=== PATIENT | female | born 2000 | race Two or more races ===

== ENCOUNTER 2025-08-20 10:00 | Inpatient (IN) | payer MEDICAID ==
[~2025-08-20] VITALS: Ht 165.1 cm; Wt 95.3 kg
[2025-08-20] MEDS ORDERED: BUTORPHANOL TARTRATE 2 MG/1 ML VIAL IV PRN ×2 (11:00)
[2025-08-20 11:30] LABS: Hematocrit 42.0 % (36.0-46.0); Hemoglobin 14.5 g/dL (12.2-16.2); Mean Corpuscular Hemoglobin 30.4 pg (28.0-32.0); Mean Corpuscular Volume 87.9 fL (80.0-100.0); Nucleated Red Blood Cells % 0.1 %
[2025-08-20 11:37] LABS: Urine Protein, UAD TRACE (Negative)
[2025-08-20 11:38] LABS: INR 0.89 (0.9-1.15); Partial Thromboplastin Time 28.2 SEC (24.5-34.5); Prothrombin Time 9.5 sec (9.3-11.8)
[2025-08-20 11:42] LABS: Albumin 4.3 g/dL (3.2-4.8); Anion Gap 11 (5-15); BUN/Creatinine Ratio 10.4 (10.0-20.0); Calcium 9.6 mg/dL (8.7-10.4); Carbon Dioxide 21 mmol/L (20-31); Chloride 107 mmol/L (98-107); Glucose 85 mg/dL (74-106); Potassium 3.9 mmol/L (3.5-5.1); Sodium 139 mmol/L (136-145); Total Protein 7.2 g/dL (5.7-8.2)
[2025-08-20 11:43] LABS: Bilirubin, Total 0.5 mg/dL (0.2-1.0); Cannabinoid Screen, Urine Neg (NEGATIVE)
[2025-08-20 11:44] LABS: Amphetamine Screen, Urine Neg (NEGATIVE); Barbiturate Scree,Urine Neg (NEGATIVE); Benzodiazephine Screen, Urine Neg (NEGATIVE); Cocaine Screen, Urine Neg (NEGATIVE); Opiate Scree,Urine Neg (NEGATIVE); Phencyclidine Screen, Urine Neg (NEGATIVE)
[2025-08-20 11:52] LABS: Alanine Aminotransferase 60 U/L (7-40); Alkaline Phosphatase 189 U/L (46-116); Blood Urea Nitrogen 7 mg/dL (9-23)
[2025-08-20] MEDS: WITCH HAZEL-GLYCERIN PAD TOP PRN (12:56)
[2025-08-20] MEDS: LACTATED RINGER'S 1,000 ML IV SCH (12:56)
[2025-08-20] MEDS: DERMOPLAST 60ML BOTTLE TOP PRN (12:56)
[2025-08-20] MEDS: PHISODERM TOP SOLN 240ML BTL TOP PRN (12:56)
--- NOTE | 2025-08-20 21:56 | DVHHP2 ---
OB CC & HPI Date Date of Admission: Aug 20, 2025 Patient Identification: : 1 Para: 0 EDC: Jul 28, 2025 EGA: 39+ weeks Chief Complaints: Reason for admission: induction of labor (Oligohydramnios) Other reason for admission: Oligohydramnios Admission Nurse Assessment Rev: Yes History of Present Complaints Positive movement Past Medical History Cardiac: No pertinent Hx Pulmonary: No pertinent Hx Central Nervous System: No pertinent Hx GI: No pertinent Hx Hemotology/Oncology: No pertinent Hx Hepatobiliary: No pertinent Hx Psychiatric: No pertinent Hx Musculoskeletal: No pertinent Hx Rheumotologic: No pertinent Hx Infectious Disease: No peritnent Hx ENT: No pertinent Hx Renal/: No pertinent Hx Endocrine: No pertinent Hx Dermatology: No pertinent Hx Past Surgical History: No pertinent Hx OB History OB History Care: Good Care Ultrasounds: Normal mid trimester US, Other (Oligohydramnios) Obstetrical Complications: Other (Oligohydramnios) Medical Complications: None Allergies: Coded Allergies: NO KNOWN ALLERGIES (Unverified , 08/20/25) Current Medications Current Medications Medications (Trade) Dose Ordered Sig/Lilian Route PRN Reason Start Time Stop Time Status Last Admin Lactated Ringer's 1,000 ml @ 125 mls/hr Q8H IV 08/20/25 11:00 08/20/25 20:13 Penicillin G Potassium [id number] units/Dextrose 50 ml @ 100 mls/hr Q4H IV 08/20/25 15:00 Bakari Christiansen (Tucks) 1 pad PRN PRN TOP PERINEAL AREA DISCOMFORT 08/20/25 11:00 08/20/25 12:56 Sodium Lauryl Sulfate (Phisoderm) 240 ml PRN PRN TOP PERINEAL AREA DISCOMFORT 08/20/25 11:00 08/20/25 12:56 Benzocaine (Dermoplast) 1 applic PRN PRN TOP PERINEAL AREA DISCOMFORT 08/20/25 11:00 08/20/25 12:56 Butorphanol Tartrate (Stadol Injection) 1 mg Q4HPRN PRN IV MODERATE PAIN (4-6 PAIN SCALE) 08/20/25 11:00 Butorphanol Tartrate (Stadol Injection) 2 mg Q4HPRN PRN IV SEVERE PAIN (7-10 PAIN SCALE) 08/20/25 11:00 Misoprostol (Cytotec) 50 mcg Q4HPRN PRN PO CERVICAL RIPENING 08/20/25 11:00 08/20/25 21:02 Lidocaine HCl (Xylocaine) 40 ml ONCE PRN IJ PERINEAL AREA DISCOMFORT 08/20/25 11:00 Family & Social History Family/Social History Blood Type: A- Rubella: immune RPR/VDRL: Negative GBS Status: Negative HBsAG: Negative Review of Systems Constitutional: No symptom reported Ears, Nose, & Throat: No symptom reported Eyes: No symptom reported Pulmonary/Respiratory: No symptom reported Cardiovascular: No symptom reported Gastrointestinal: No symptom reported Genitourinary: No symptom reported Musculoskeletal: No symptom reported Skin: No symptom reported Psychiatric: No symptom reported Endocrine: No symptom reported Hemotologic/Lymphatic: No symptom reported OB Admission Exam Physical Exam HEENT: TMs Normal, Fontanelles Normal, Nasal Mucosa Normal, Eyes non-injected, Oropharynx Normal, PERRLA, Moist Membranes, EOMI Heart: Rhythm Normal Lungs: Clear Abdomen: Non tender Extremities: Normal Reflexes: Normal Cervical Dilatation: 1cm Effacement: 50% Station: -2 Membranes: Intact Heart Rate: 140's Accelerations: Accelerations Present Decelerations: No Decelerations Short Term Variability: Present Intensity: Mild OB Plan Plan Admitting Diagnosis: induction of labor- low TAMMY Plan: Induction Other Plan: Cytotec SANJEEV ORELLANA DO Aug 20, 2025 21:56
--- NOTE | 2025-08-21 05:20 | DVHPN2 ---
Chief Complaints Patient reports: No new complaints, Feels better Nursing reports: No new complaints, No abdominal pain, No chest pain, No dizziness, No cough Objective Medications Current Medications Medications (Trade) Dose Ordered Sig/Lilian Route PRN Reason Start Time Stop Time Status Last Admin Benzocaine (Dermoplast) 1 applic PRN PRN TOP PERINEAL AREA DISCOMFORT 08/20/25 11:00 08/20/25 12:56 Butorphanol Tartrate (Stadol Injection) 1 mg Q4HPRN PRN IV MODERATE PAIN (4-6 PAIN SCALE) 08/20/25 11:00 Butorphanol Tartrate (Stadol Injection) 2 mg Q4HPRN PRN IV SEVERE PAIN (7-10 PAIN SCALE) 08/20/25 11:00 Lactated Ringer's 1,000 ml @ 125 mls/hr Q8H IV 08/20/25 11:00 08/21/25 04:46 Lidocaine HCl (Xylocaine) 40 ml ONCE PRN IJ PERINEAL AREA DISCOMFORT 08/20/25 11:00 Misoprostol (Cytotec) 50 mcg Q4HPRN PRN PO CERVICAL RIPENING 08/20/25 11:00 08/21/25 01:31 Penicillin G Potassium [id number] units/Dextrose 50 ml @ 100 mls/hr Q4H IV 08/20/25 15:00 Sodium Lauryl Sulfate (Phisoderm) 240 ml PRN PRN TOP PERINEAL AREA DISCOMFORT 08/20/25 11:00 08/20/25 12:56 Witch Елена (Tucks) 1 pad PRN PRN TOP PERINEAL AREA DISCOMFORT 08/20/25 11:00 08/20/25 12:56 General: Normal Neck: Normal Lungs: Normal Cardiovascular: Normal Abdominal: Normal ( Jorge's 7-1/2 lb) Extremities: Normal Skin: Normal Neurological: Normal Others Cervix 2 cm 60% firmly applied vertex heart tones reassuring yamila 2-310 minutes Studies Laboratory Tests 08/20/25 11:00 Test 08/20/25 11:00 Range/Units Serum Glucose 85 74-106 mg/dL Ass/Plan Assessment Induction ablator oligohydramnios Plan 4th Cytotec SANJEEV ORELLANA DO Aug 21, 2025 05:20
--- NOTE | 2025-08-21 09:16 | DVHPN2 ---
[facility] Labor Progress Note Date and Time Seen Date Seen: Aug 21, 2025 Time Seen: 08:20 Subjective Patient reports: No new complaints Objective Vital Signs VSS- See CPN Monitoring Method Monitoring Method: External Heart Rate Heart Rate Baseline: 150 Heart Rate Variability: Moderate Presence of FHR Accelerations: Yes Presence of FHR Decelerations: No Are all 5 Components of the FH: Yes Contractions Contractions Frequency: Occasional Contractions Intensity: Mild Contractions Resting Tone: Relaxed Membranes Membranes: Intact Vaginal Exam Vag Exam Deferred: No (/-2, jacome CRB placed with 60cc sterile saline) Vaginal Exam Presentation: VTX Vaginal Exam Show: Small Medications Medications - Pitocin: No Medications - Pain Medications: PRN Medication - Epidural: No Medication - Other s/p 5 doses of cytotec Lab Results Lab Results Current Medications Medications (Trade) Dose Ordered Sig/Lilian Start Time Stop Time Status Last Admin Dose Admin Lactated Ringer's 1,000 ml @ 125 mls/hr Q8H 08/20/25 11:00 08/21/25 04:46 125 MLS/HR Penicillin G Potassium 50 ml @ 100 mls/hr ONCE ONCE 08/20/25 11:00 08/20/25 11:29 DC Penicillin G Potassium [id number] units/Dextrose 50 ml @ 100 mls/hr Q4H 08/20/25 15:00 Bakari Christiansen (Fahad) 1 pad PRN PRN 08/20/25 11:00 08/20/25 12:56 1 PAD Sodium Lauryl Sulfate (Phisoderm) 240 ml PRN PRN 08/20/25 11:00 08/20/25 12:56 240 ML Benzocaine (Dermoplast) 1 applic PRN PRN 08/20/25 11:00 08/20/25 12:56 1 APPLIC Butorphanol Tartrate (Stadol Injection) 1 mg Q4HPRN PRN 08/20/25 11:00 Butorphanol Tartrate (Stadol Injection) 2 mg Q4HPRN PRN 08/20/25 11:00 Misoprostol (Cytotec) 50 mcg Q4HPRN PRN 08/20/25 11:00 08/21/25 05:30 50 MCG Lidocaine HCl (Xylocaine) 40 ml ONCE PRN 08/20/25 11:00 Oxytocin 500 ml @ 999 mls/hr Q31M ONCE 08/20/25 11:00 08/20/25 11:30 DC Oxytocin 500 ml @ 125 mls/hr Q4H ONCE 08/20/25 11:30 08/20/25 15:29 DC Laboratory Tests Test 08/20/25 11:00 Range/Units White Blood Count 8.1 4.4-10.8 10^3/uL Red Blood Count 4.78 4.0-5.20 10^6/uL Hemoglobin 14.5 12.2-16.2 g/dL Hematocrit 42.0 36.0-46.0 % Mean Corpuscular Volume 87.9 80.0-100.0 fL Mean Corpuscular Hemoglobin 30.4 28.0-32.0 pg Mean Corpuscular Hemoglobin Concent 34.6 32.0-36.0 g/dL Red Cell Distribution Width 13.0 11.8-14.3 % Platelet Count 173 140-450 10^3/uL Mean Platelet Volume 10.5 6.9-10.8 fL Neutrophils (%) (Auto) 65.4 37.0-80.0 % Lymphocytes (%) (Auto) 26.7 10.0-50.0 % Monocytes (%) (Auto) 6.6 0.0-12.0 % Eosinophils (%) (Auto) 1.0 0.0-7.0 % Basophils (%) (Auto) 0.3 0.0-2.0 % Neutrophils # (Auto) 5.3 1.6-8.6 10 ^3/uL Lymphocytes # (Auto) 2.2 0.4-5.4 10 ^3/uL Monocytes # (Auto) 0.5 0-1.3 10 ^3/uL Eosinophils # (Auto) 0.1 0-0.8 10 ^3/uL Basophils # (Auto) 0 0-0.2 10 ^3/uL Nucleated Red Blood Cells 0.1 % Prothrombin Time 9.5 9.3-11.8 sec Prothrombin Time INR 0.89 L 0.9-1.15 Activated Partial Thromboplast Time 28.2 24.5-34.5 SEC Urine Color Yellow Yellow Urine Clarity Turbid H Clear Urine pH 5.5 5.0-9.0 Urine Specific [place] 1.029 1.001-1.035 Urine Protein Trace H Negative Urine Ketones Negative Negative Urine Blood Negative Negative /uL Urine Nitrite Negative Negative Urine Bilirubin Negative Negative Urine Urobilinogen Normal Negative mg/dL Urine Leukocyte Esterase 1+ Negative /uL Urine RBC 4 0 - 4 /hpf Urine Microscopic WBC 22 H 0-5 /HPF Urine Squamous Epithelial Cells Few <5 /hpf Urine Bacteria Many H None Seen /hpf Urine Mucus Few None Seen Urine Glucose Normal Normal mg/dL Sodium Level 139 136-145 mmol/L Potassium Level 3.9 3.5-5.1 mmol/L Chloride Level 107 98-107 mmol/L Carbon Dioxide Level 21 20-31 mmol/L Anion Gap 11 5-15 Blood Urea Nitrogen 7 L 9-23 mg/dL Creatinine 0.67 0.550-1.02 mg/dL Glomerular Filtration Rate Calc 123 >90 mL/min BUN/Creatinine Ratio 10.4 10.0-20.0 Serum Glucose 85 74-106 mg/dL Calcium Level 9.6 8.7-10.4 mg/dL Total Bilirubin 0.5 0.2-1.0 mg/dL Aspartate Amino Transferase (AST) 37 13-40 U/L Alanine Aminotransferase (ALT) 60 H 7-40 U/L Alkaline Phosphatase 189 H 46-116 U/L Total Protein 7.2 5.7-8.2 g/dL Albumin 4.3 3.2-4.8 g/dL Urine Opiates Screen Neg NEGATIVE Urine Fentanyl Screen Neg NEGATIVE Urine Barbiturates Screen Neg NEGATIVE Urine Phencyclidine Screen Neg NEGATIVE Urine Amphetamines Screen Neg NEGATIVE Urine Benzodiazepines Screen Neg NEGATIVE Urine Cocaine Screen Neg NEGATIVE Urine Cannabinoids Screen Neg NEGATIVE Treponema pallidum Antibody Non-reactive Negative Hepatitis C Antibody Negative Negative Assessment Assessment 25y/o IUP@39.1wk Induction of labor Oligohydramnios Category 1 EFM Intact Membrane GBS positive Plan Plan After discussion with patient, patient agrees with POC for jacome CRB placement RN to apply traction to jacome CRB q1hr Discussed potential of starting pitocin with pt depending on UC pattern 4 hours after last dose of cytotec. Pt agrees with POC. Start IV PCN for GBS treatment when in active labor or ROM. monitoring per order Pain mgmt PRN Frequent position changes in and out of bed encouraged Limit SVE unless necessary Intrauterine resuscitation PRN Anticipate CNM will consult Dr Luevano PRN Plan discussed with: Patient, Spouse, Other (family) Visit Coding OBGYN Date of Service: Aug 21, 2025 Billing Provider: LION PLUMMER CNM AIRCRAFT ASSEMBLER Common Visit Codes: [id number] INP/OBS CARE(HIGH) AIRCRAFT ASSEMBLER Procedure Codes: [id number] NON-STRESS TEST LION PLUMMER CNM Aug 21, 2025 09:16
[2025-08-21] MEDS ORDERED: NALOXONE HCL 0.4 MG/ML VIAL IV ONE (12:30)
--- NOTE | 2025-08-21 12:35 | DVHPN2 ---
CNM Labor Progress Note Date and Time Seen Date Seen: Aug 21, 2025 Time Seen: 12:05 Subjective Subjective Comment Pt wants epidural before starting IV pitocin. Objective Vital Signs VSS, see CPN Monitoring Method Monitoring Method: External Heart Rate Heart Rate Baseline: 145 Heart Rate Variability: Moderate Presence of FHR Accelerations: Yes Presence of FHR Decelerations: No Are all 5 Components of the FH: Yes Contractions Contractions Frequency: Other (q4-6 min) Duration of Contraction: 90 Contractions Intensity: Moderate Contractions Resting Tone: Relaxed Membranes Membranes: Intact Vaginal Exam Vag Exam Deferred: Yes (jacome CRB in place) Medications Medications - Pitocin: No Medications - Pain Medications: PRN Medication - Epidural: No Medication - Other s/p 5 doses of PO cytotec Lab Results Lab Results Current Medications Medications (Trade) Dose Ordered Sig/Lilian Start Time Stop Time Status Last Admin Dose Admin Lactated Ringer's 1,000 ml @ 125 mls/hr Q8H 08/20/25 11:00 08/21/25 04:46 125 MLS/HR Penicillin G Potassium 50 ml @ 100 mls/hr ONCE ONCE 08/20/25 11:00 08/20/25 11:29 DC Penicillin G Potassium [id number] units/Dextrose 50 ml @ 100 mls/hr Q4H 08/20/25 15:00 Bakari Christiansen (Fahad) 1 pad PRN PRN 08/20/25 11:00 08/20/25 12:56 1 PAD Sodium Lauryl Sulfate (Phisoderm) 240 ml PRN PRN 08/20/25 11:00 08/20/25 12:56 240 ML Benzocaine (Dermoplast) 1 applic PRN PRN 08/20/25 11:00 08/20/25 12:56 1 APPLIC Butorphanol Tartrate (Stadol Injection) 1 mg Q4HPRN PRN 08/20/25 11:00 Butorphanol Tartrate (Stadol Injection) 2 mg Q4HPRN PRN 08/20/25 11:00 Misoprostol (Cytotec) 50 mcg Q4HPRN PRN 08/20/25 11:00 08/21/25 05:30 50 MCG Lidocaine HCl (Xylocaine) 40 ml ONCE PRN 08/20/25 11:00 Oxytocin 500 ml @ 999 mls/hr Q31M ONCE 08/20/25 11:00 08/20/25 11:30 DC Oxytocin 500 ml @ 125 mls/hr Q4H ONCE 08/20/25 11:30 08/20/25 15:29 DC Naloxone HCl (Narcan) 0.2 mg PRN ONCE 08/21/25 12:30 08/21/25 12:31 Ephedrine Sulfate (ePHEDrine SULFATE) 10 mg PRN ONCE 08/21/25 12:30 08/21/25 12:31 Fentanyl Citrate 100 mcg ONCE ONCE 08/21/25 12:30 08/21/25 12:31 Lactated Ringer's 1,000 ml @ 1,000 mls/hr Q1H ONCE 08/21/25 12:30 08/21/25 13:29 Laboratory Tests Test 08/20/25 11:00 Range/Units White Blood Count 8.1 4.4-10.8 10^3/uL Red Blood Count 4.78 4.0-5.20 10^6/uL Hemoglobin 14.5 12.2-16.2 g/dL Hematocrit 42.0 36.0-46.0 % Mean Corpuscular Volume 87.9 80.0-100.0 fL Mean Corpuscular Hemoglobin 30.4 28.0-32.0 pg Mean Corpuscular Hemoglobin Concent 34.6 32.0-36.0 g/dL Red Cell Distribution Width 13.0 11.8-14.3 % Platelet Count 173 140-450 10^3/uL Mean Platelet Volume 10.5 6.9-10.8 fL Neutrophils (%) (Auto) 65.4 37.0-80.0 % Lymphocytes (%) (Auto) 26.7 10.0-50.0 % Monocytes (%) (Auto) 6.6 0.0-12.0 % Eosinophils (%) (Auto) 1.0 0.0-7.0 % Basophils (%) (Auto) 0.3 0.0-2.0 % Neutrophils # (Auto) 5.3 1.6-8.6 10 ^3/uL Lymphocytes # (Auto) 2.2 0.4-5.4 10 ^3/uL Monocytes # (Auto) 0.5 0-1.3 10 ^3/uL Eosinophils # (Auto) 0.1 0-0.8 10 ^3/uL Basophils # (Auto) 0 0-0.2 10 ^3/uL Nucleated Red Blood Cells 0.1 % Prothrombin Time 9.5 9.3-11.8 sec Prothrombin Time INR 0.89 L 0.9-1.15 Activated Partial Thromboplast Time 28.2 24.5-34.5 SEC Urine Color Yellow Yellow Urine Clarity Turbid H Clear Urine pH 5.5 5.0-9.0 Urine Specific [place] 1.029 1.001-1.035 Urine Protein Trace H Negative Urine Ketones Negative Negative Urine Blood Negative Negative /uL Urine Nitrite Negative Negative Urine Bilirubin Negative Negative Urine Urobilinogen Normal Negative mg/dL Urine Leukocyte Esterase 1+ Negative /uL Urine RBC 4 0 - 4 /hpf Urine Microscopic WBC 22 H 0-5 /HPF Urine Squamous Epithelial Cells Few <5 /hpf Urine Bacteria Many H None Seen /hpf Urine Mucus Few None Seen Urine Glucose Normal Normal mg/dL Sodium Level 139 136-145 mmol/L Potassium Level 3.9 3.5-5.1 mmol/L Chloride Level 107 98-107 mmol/L Carbon Dioxide Level 21 20-31 mmol/L Anion Gap 11 5-15 Blood Urea Nitrogen 7 L 9-23 mg/dL Creatinine 0.67 0.550-1.02 mg/dL Glomerular Filtration Rate Calc 123 >90 mL/min BUN/Creatinine Ratio 10.4 10.0-20.0 Serum Glucose 85 74-106 mg/dL Calcium Level 9.6 8.7-10.4 mg/dL Total Bilirubin 0.5 0.2-1.0 mg/dL Aspartate Amino Transferase (AST) 37 13-40 U/L Alanine Aminotransferase (ALT) 60 H 7-40 U/L Alkaline Phosphatase 189 H 46-116 U/L Total Protein 7.2 5.7-8.2 g/dL Albumin 4.3 3.2-4.8 g/dL Urine Opiates Screen Neg NEGATIVE Urine Fentanyl Screen Neg NEGATIVE Urine Barbiturates Screen Neg NEGATIVE Urine Phencyclidine Screen Neg NEGATIVE Urine Amphetamines Screen Neg NEGATIVE Urine Benzodiazepines Screen Neg NEGATIVE Urine Cocaine Screen Neg NEGATIVE Urine Cannabinoids Screen Neg NEGATIVE Treponema pallidum Antibody Non-reactive Negative Hepatitis C Antibody Negative Negative Assessment Assessment 25y/o IUP@39.1wk Induction of labor Oligohydramnios Category 1 EFM Intact Membrane GBS positive Plan Plan RN to apply traction to jacome CRB q1hr until it falls out or remove 12 hours from time of insertion Start IV pitocin per order Start IV PCN for GBS treatment when in active labor or ROM. monitoring per order Pain mgmt PRN Frequent position changes in bed encouraged Limit SVE unless necessary Intrauterine resuscitation PRN Anticipate CNM will consult Dr Luevano PRN Plan discussed with: Patient, Other (family) Visit Coding OBGYN Date of Service: Aug 21, 2025 Billing Provider: LION PLUMMER CNM COMPUTER NETWORK SUPPORT SPECIALIST Common Visit Codes: [id number] INP/OBS CARE(HIGH) LION PLUMMER CNM Aug 21, 2025 12:35
[2025-08-21] MEDS: LIDOCAINE 2% (LOCAL ANESTH.) PF 5ml SDV ONE (12:47)
[2025-08-21] MEDS: ROPIVACAINE HCL 100 ML ONE ×2 (13:28→21:02)
[2025-08-21] MEDS: fentaNYL CITRATE 100 MCG/2 ML VL IV ONE (13:49)
--- NOTE | 2025-08-21 14:05 | EPIDURAL ---
Anesthesia Procedural Note - Epidural Informed consent obtained?: Yes Medication Administered: Fentanyl 100 mcg Sterile prept drape: Yes Spinal level of insertion: L3-L4 Test dose of lidocaine & Epine: Negative Infusion started: Yes Start time: 13:19 End time: 14:04 Procedure description Procedure description: 25 year old , 29 weeks AOG, in active labor, desires PCEA for labor and delivery. She denies any medical problems, no allergies, and takes vitamins. Chart reviewed, patient interviewed, informed consent, all questions answered, and she wishes to proceed. Ms. Molly Perez was positioned sitting up then prepped and draped. Local anesthetic with lidocaine 1% was infiltrated on the skin. Epidural space identified by loss of resistance technique. Test dose negative x 2. Catheter threaded and secured. Patient states that her pain intensity has improved. Delivered by a single live baby girl with APGARs 8 & 9 at 1 & 5 minutes respectively with 1 nuchal cord. Epidural catheter pulled with tip intact. No redness, swelling, or oozing around epidural area. Patient is back to baseline, able to ambulate on her own and meza with her baby. OSCAR PERSAUD MD Aug 21, 2025 14:05
[2025-08-21] MEDS: LACTATED RINGER'S 1,000 ML IV ONE (14:20)
[2025-08-21] MEDS: LACT. RINGERS/OXYTOCIN 20UNITS 1,000 ML IV SCH (16:04)
--- NOTE | 2025-08-21 16:39 | DVHPN2 ---
CNM Labor Progress Note Date and Time Seen Date Seen: Aug 21, 2025 Time Seen: 16:19 Subjective Subjective Comment Pt is comfortable after epidural, denies pain or pressure. Objective Vital Signs VSS, see CPN Monitoring Method Monitoring Method: External Heart Rate Heart Rate Baseline: 145 Heart Rate Variability: Moderate Presence of FHR Accelerations: Yes Presence of FHR Decelerations: Yes Heart Rate Type of Decel: Late Decelerations (x1) Are all 5 Components of the FH: Yes Contractions Contractions Frequency: Other (q3-6 min) Duration of Contraction: 70 Contractions Intensity: Moderate Contractions Resting Tone: Relaxed Membranes Membranes: Intact Vaginal Exam Vag Exam Deferred: No (jacome CRB still in place) Vaginal Exam Dilation: 3 Vaginal Exam Effacement: 80 Vaginal Exam Station: -2 Vaginal Exam Presentation: VTX Vaginal Exam Show: Small Medications Medications - Pitocin: Yes (1mu) Medication - Epidural: Yes Medication - Other S/P 5 doses of PO cytotec Lab Results Lab Results Vital Signs Date Time Temp Pulse Resp B/P (MAP) Pulse Ox O2 Delivery O2 Flow Rate FiO2 08/21/25 13:49 140/65 Current Medications Medications (Trade) Dose Ordered Sig/Lilian Start Time Stop Time Status Last Admin Dose Admin Lactated Ringer's 1,000 ml @ 125 mls/hr Q8H 08/20/25 11:00 08/21/25 13:50 125 MLS/HR Penicillin G Potassium 50 ml @ 100 mls/hr ONCE ONCE 08/20/25 11:00 08/20/25 11:29 DC Penicillin G Potassium [id number] units/Dextrose 50 ml @ 100 mls/hr Q4H 08/20/25 15:00 Bakari Christiansen (Tucks) 1 pad PRN PRN 08/20/25 11:00 08/20/25 12:56 1 PAD Sodium Lauryl Sulfate (Phisoderm) 240 ml PRN PRN 08/20/25 11:00 08/20/25 12:56 240 ML Benzocaine (Dermoplast) 1 applic PRN PRN 08/20/25 11:00 08/20/25 12:56 1 APPLIC Butorphanol Tartrate (Stadol Injection) 1 mg Q4HPRN PRN 08/20/25 11:00 Butorphanol Tartrate (Stadol Injection) 2 mg Q4HPRN PRN 08/20/25 11:00 Misoprostol (Cytotec) 50 mcg Q4HPRN PRN 08/20/25 11:00 08/21/25 05:30 50 MCG Lidocaine HCl (Xylocaine) 40 ml ONCE PRN 08/20/25 11:00 Oxytocin 500 ml @ 999 mls/hr Q31M ONCE 08/20/25 11:00 08/20/25 11:30 DC Oxytocin 500 ml @ 125 mls/hr Q4H ONCE 08/20/25 11:30 08/20/25 15:29 DC Naloxone HCl (Narcan) 0.2 mg PRN ONCE 08/21/25 12:30 08/21/25 12:31 DC Ephedrine Sulfate (ePHEDrine SULFATE) 10 mg PRN ONCE 08/21/25 12:30 08/21/25 12:31 DC Fentanyl Citrate 100 mcg ONCE ONCE 08/21/25 12:30 08/21/25 12:31 DC 08/21/25 13:49 100 MCG Lactated Ringer's 1,000 ml @ 1,000 mls/hr Q1H ONCE 08/21/25 12:30 08/21/25 13:29 DC 08/21/25 14:20 1,000 MLS/HR Oxytocin 1,000 ml @ 6 ml/hr Q24H 08/21/25 14:00 08/21/25 16:04 3 ML/HR Laboratory Tests Test 08/20/25 11:00 Range/Units White Blood Count 8.1 4.4-10.8 10^3/uL Red Blood Count 4.78 4.0-5.20 10^6/uL Hemoglobin 14.5 12.2-16.2 g/dL Hematocrit 42.0 36.0-46.0 % Mean Corpuscular Volume 87.9 80.0-100.0 fL Mean Corpuscular Hemoglobin 30.4 28.0-32.0 pg Mean Corpuscular Hemoglobin Concent 34.6 32.0-36.0 g/dL Red Cell Distribution Width 13.0 11.8-14.3 % Platelet Count 173 140-450 10^3/uL Mean Platelet Volume 10.5 6.9-10.8 fL Neutrophils (%) (Auto) 65.4 37.0-80.0 % Lymphocytes (%) (Auto) 26.7 10.0-50.0 % Monocytes (%) (Auto) 6.6 0.0-12.0 % Eosinophils (%) (Auto) 1.0 0.0-7.0 % Basophils (%) (Auto) 0.3 0.0-2.0 % Neutrophils # (Auto) 5.3 1.6-8.6 10 ^3/uL Lymphocytes # (Auto) 2.2 0.4-5.4 10 ^3/uL Monocytes # (Auto) 0.5 0-1.3 10 ^3/uL Eosinophils # (Auto) 0.1 0-0.8 10 ^3/uL Basophils # (Auto) 0 0-0.2 10 ^3/uL Nucleated Red Blood Cells 0.1 % Prothrombin Time 9.5 9.3-11.8 sec Prothrombin Time INR 0.89 L 0.9-1.15 Activated Partial Thromboplast Time 28.2 24.5-34.5 SEC Urine Color Yellow Yellow Urine Clarity Turbid H Clear Urine pH 5.5 5.0-9.0 Urine Specific [place] 1.029 1.001-1.035 Urine Protein Trace H Negative Urine Ketones Negative Negative Urine Blood Negative Negative /uL Urine Nitrite Negative Negative Urine Bilirubin Negative Negative Urine Urobilinogen Normal Negative mg/dL Urine Leukocyte Esterase 1+ Negative /uL Urine RBC 4 0 - 4 /hpf Urine Microscopic WBC 22 H 0-5 /HPF Urine Squamous Epithelial Cells Few <5 /hpf Urine Bacteria Many H None Seen /hpf Urine Mucus Few None Seen Urine Glucose Normal Normal mg/dL Sodium Level 139 136-145 mmol/L Potassium Level 3.9 3.5-5.1 mmol/L Chloride Level 107 98-107 mmol/L Carbon Dioxide Level 21 20-31 mmol/L Anion Gap 11 5-15 Blood Urea Nitrogen 7 L 9-23 mg/dL Creatinine 0.67 0.550-1.02 mg/dL Glomerular Filtration Rate Calc 123 >90 mL/min BUN/Creatinine Ratio 10.4 10.0-20.0 Serum Glucose 85 74-106 mg/dL Calcium Level 9.6 8.7-10.4 mg/dL Total Bilirubin 0.5 0.2-1.0 mg/dL Aspartate Amino Transferase (AST) 37 13-40 U/L Alanine Aminotransferase (ALT) 60 H 7-40 U/L Alkaline Phosphatase 189 H 46-116 U/L Total Protein 7.2 5.7-8.2 g/dL Albumin 4.3 3.2-4.8 g/dL Urine Opiates Screen Neg NEGATIVE Urine Fentanyl Screen Neg NEGATIVE Urine Barbiturates Screen Neg NEGATIVE Urine Phencyclidine Screen Neg NEGATIVE Urine Amphetamines Screen Neg NEGATIVE Urine Benzodiazepines Screen Neg NEGATIVE Urine Cocaine Screen Neg NEGATIVE Urine Cannabinoids Screen Neg NEGATIVE Treponema pallidum Antibody Non-reactive Negative Hepatitis C Antibody Negative Negative Assessment Assessment 25y/o IUP@39.1wk Induction of labor Oligohydramnios Category 1 EFM Intact Membrane GBS positive Plan Plan RN to continue applying traction to jacome CRB q1hr until it falls out or remove 12 hours from time of insertion Continue with IV pitocin titration per order Start IV PCN for GBS treatment when in active labor or ROM. monitoring per order Pain mgmt - epidural in place Frequent position changes in bed encouraged Limit SVE unless necessary Intrauterine resuscitation PRN Anticipate Dr. Luevano updated on pt status. Plan discussed with: Patient Visit Coding OBGYN Date of Service: Aug 21, 2025 Billing Provider: LION PLUMMER CNM VEHICLE SERVICE ATTENDANT Common Visit Codes: [id number] INP/OBS CARE(MOD) LION PLUMMER CNM Aug 21, 2025 16:39
[2025-08-21] MEDS: ceFAZolin 2 GM/D5W50ml 50 ML IV ONE (20:12)
[2025-08-21] MEDS: PENICILLIN G POT 5MIL/D5 50ML 50 ML IV ONE ×2 (21:20)
[2025-08-21] MEDS ORDERED: ONDANSETRON HCL 4 MG/2 ML VIAL IV PRN (22:45)
--- NOTE | 2025-08-22 00:33 | DVHPN2 ---
CNM Labor Progress Note Date and Time Seen Date Seen: Aug 22, 2025 Time Seen: 12:00 Subjective Patient reports: No new complaints Subjective Comment Subjective Patient is (0,0,0,0) IUP 39w2d IOL for Borderline TAMMY 5.0 Oligohydramnios Received Misoprostol X5 dose CRB That was D/C @ 2029 Currently on Pitocin induction 8 mu/min GBS status: Positive Ancef 2 gm IVPB Penicillin Q4H Epidural for pain management Current SVE 4.5/80/-1 with Bulging Membranes Objective Vital Signs Vital Signs Date Time Temp Pulse Resp B/P (MAP) Pulse Ox O2 Delivery O2 Flow Rate FiO2 08/21/25 13:49 140/65 Monitoring Method Monitoring Method: External Heart Rate Heart Rate Baseline: 165 Heart Rate Variability: Moderate Presence of FHR Accelerations: Yes Presence of FHR Decelerations: No Changes in Trends of Patterns: No Are all 5 Components of the FH: Yes Contractions Contractions Frequency: Other Duration of Contraction: 2 Contractions Intensity: Moderate Contractions Resting Tone: Relaxed Membranes Membranes: Bulging Vaginal Exam Vag Exam Deferred: No Vaginal Exam Dilation: 4 (4.5) Vaginal Exam Effacement: 80 Vaginal Exam Station: -1 Vaginal Exam Presentation: VTX Vaginal Exam Show: Moderate Medications Medications - Pitocin: Yes Medication - Epidural: Yes Medication - Other Ancef Penicillin Lab Results Lab Results Vital Signs Date Time Temp Pulse Resp B/P (MAP) Pulse Ox O2 Delivery O2 Flow Rate FiO2 08/21/25 13:49 140/65 Current Medications Medications (Trade) Dose Ordered Sig/Lilian Start Time Stop Time Status Last Admin Dose Admin Lactated Ringer's 1,000 ml @ 125 mls/hr Q8H 08/20/25 11:00 08/21/25 20:18 125 MLS/HR Penicillin G Potassium 50 ml @ 100 mls/hr ONCE ONCE 08/20/25 11:00 08/20/25 11:29 DC 08/21/25 21:20 100 MLS/HR Penicillin G Potassium 3763155 units/Dextrose 50 ml @ 100 mls/hr Q4H 08/20/25 15:00 Bakari Christiansen (Fahad) 1 pad PRN PRN 08/20/25 11:00 08/20/25 12:56 1 PAD Sodium Lauryl Sulfate (Phisoderm) 240 ml PRN PRN 08/20/25 11:00 08/20/25 12:56 240 ML Benzocaine (Dermoplast) 1 applic PRN PRN 08/20/25 11:00 08/20/25 12:56 1 APPLIC Butorphanol Tartrate (Stadol Injection) 1 mg Q4HPRN PRN 08/20/25 11:00 Butorphanol Tartrate (Stadol Injection) 2 mg Q4HPRN PRN 08/20/25 11:00 Misoprostol (Cytotec) 50 mcg Q4HPRN PRN 08/20/25 11:00 08/21/25 05:30 50 MCG Lidocaine HCl (Xylocaine) 40 ml ONCE PRN 08/20/25 11:00 Oxytocin 500 ml @ 999 mls/hr Q31M ONCE 08/20/25 11:00 08/20/25 11:30 DC Oxytocin 500 ml @ 125 mls/hr Q4H ONCE 08/20/25 11:30 08/20/25 15:29 DC Naloxone HCl (Narcan) 0.2 mg PRN ONCE 08/21/25 12:30 08/21/25 12:31 DC Ephedrine Sulfate (ePHEDrine SULFATE) 10 mg PRN ONCE 08/21/25 12:30 08/21/25 12:31 DC Fentanyl Citrate 100 mcg ONCE ONCE 08/21/25 12:30 08/21/25 12:31 DC 08/21/25 13:49 100 MCG Lactated Ringer's 1,000 ml @ 1,000 mls/hr Q1H ONCE 08/21/25 12:30 08/21/25 13:29 DC 08/21/25 14:20 1,000 MLS/HR Oxytocin 1,000 ml @ 6 ml/hr Q24H 08/21/25 14:00 08/21/25 16:04 3 ML/HR Cefazolin Sodium/ Dextrose 50 ml @ 50 mls/hr ONCE ONCE 08/21/25 19:45 08/21/25 20:44 DC 08/21/25 20:12 50 MLS/HR Cefazolin Sodium 50 ml @ 100 mls/hr Q8HR 08/22/25 07:00 Ondansetron HCl (Zofran) 4 mg Q4HPRN PRN 08/21/25 22:45 Laboratory Tests Test 08/20/25 11:00 Range/Units White Blood Count 8.1 4.4-10.8 10^3/uL Red Blood Count 4.78 4.0-5.20 10^6/uL Hemoglobin 14.5 12.2-16.2 g/dL Hematocrit 42.0 36.0-46.0 % Mean Corpuscular Volume 87.9 80.0-100.0 fL Mean Corpuscular Hemoglobin 30.4 28.0-32.0 pg Mean Corpuscular Hemoglobin Concent 34.6 32.0-36.0 g/dL Red Cell Distribution Width 13.0 11.8-14.3 % Platelet Count 173 140-450 10^3/uL Mean Platelet Volume 10.5 6.9-10.8 fL Neutrophils (%) (Auto) 65.4 37.0-80.0 % Lymphocytes (%) (Auto) 26.7 10.0-50.0 % Monocytes (%) (Auto) 6.6 0.0-12.0 % Eosinophils (%) (Auto) 1.0 0.0-7.0 % Basophils (%) (Auto) 0.3 0.0-2.0 % Neutrophils # (Auto) 5.3 1.6-8.6 10 ^3/uL Lymphocytes # (Auto) 2.2 0.4-5.4 10 ^3/uL Monocytes # (Auto) 0.5 0-1.3 10 ^3/uL Eosinophils # (Auto) 0.1 0-0.8 10 ^3/uL Basophils # (Auto) 0 0-0.2 10 ^3/uL Nucleated Red Blood Cells 0.1 % Prothrombin Time 9.5 9.3-11.8 sec Prothrombin Time INR 0.89 L 0.9-1.15 Activated Partial Thromboplast Time 28.2 24.5-34.5 SEC Urine Color Yellow Yellow Urine Clarity Turbid H Clear Urine pH 5.5 5.0-9.0 Urine Specific [place] 1.029 1.001-1.035 Urine Protein Trace H Negative Urine Ketones Negative Negative Urine Blood Negative Negative /uL Urine Nitrite Negative Negative Urine Bilirubin Negative Negative Urine Urobilinogen Normal Negative mg/dL Urine Leukocyte Esterase 1+ Negative /uL Urine RBC 4 0 - 4 /hpf Urine Microscopic WBC 22 H 0-5 /HPF Urine Squamous Epithelial Cells Few <5 /hpf Urine Bacteria Many H None Seen /hpf Urine Mucus Few None Seen Urine Glucose Normal Normal mg/dL Sodium Level 139 136-145 mmol/L Potassium Level 3.9 3.5-5.1 mmol/L Chloride Level 107 98-107 mmol/L Carbon Dioxide Level 21 20-31 mmol/L Anion Gap 11 5-15 Blood Urea Nitrogen 7 L 9-23 mg/dL Creatinine 0.67 0.550-1.02 mg/dL Glomerular Filtration Rate Calc 123 >90 mL/min BUN/Creatinine Ratio 10.4 10.0-20.0 Serum Glucose 85 74-106 mg/dL Calcium Level 9.6 8.7-10.4 mg/dL Total Bilirubin 0.5 0.2-1.0 mg/dL Aspartate Amino Transferase (AST) 37 13-40 U/L Alanine Aminotransferase (ALT) 60 H 7-40 U/L Alkaline Phosphatase 189 H 46-116 U/L Total Protein 7.2 5.7-8.2 g/dL Albumin 4.3 3.2-4.8 g/dL Urine Opiates Screen Neg NEGATIVE Urine Fentanyl Screen Neg NEGATIVE Urine Barbiturates Screen Neg NEGATIVE Urine Phencyclidine Screen Neg NEGATIVE Urine Amphetamines Screen Neg NEGATIVE Urine Benzodiazepines Screen Neg NEGATIVE Urine Cocaine Screen Neg NEGATIVE Urine Cannabinoids Screen Neg NEGATIVE Treponema pallidum Antibody Non-reactive Negative Hepatitis C Antibody Negative Negative Assessment Assessment ASSESSMENT: 25y/o (0,0,0,0) 39w2d IOL [place] FHR baseline 165 bpm, mod variability , Accelerations present, no deceleration; Category 1 tracing with occasional Cat 2 Contractions q 2-3 mins x 60 secs PLAN: Continue with Pitocin Induction Currently 8 mu/min Turn patient side to side Cooling Measures Remove havy blankets IV ANBX for GBS + in Epidural for pain management Will Revaluate in the morning for possibility of Amniotomy Anticipate Vaginal Delivery Plan of care discussed with Patient Process, Risks, benefits, of available management options discussed Informed Consent obtained Consent for possible blood transfusion obtained. All questions answered. Plan Plan discussed with: Patient Visit Coding OBGYN Date of Service: Aug 22, 2025 Billing Provider: ANGELA ALFARO CNM SKIFF OPERATOR Common Visit Codes: [id number] INP/OBS CARE (MOD) ANGELA ALFARO CNMEct 2024 00:33
[2025-08-22] MEDS: PENICILLIN G POTASSIUM 2,500,000 UNITS in D5W 5% 50 ML IV SCH (01:37)
--- NOTE | 2025-08-22 02:56 | DVHPN2 ---
CNM Labor Progress Note Date and Time Seen Date Seen: Aug 22, 2025 Time Seen: 02:35 Subjective Patient reports: No new complaints Subjective Comment Subjective Patient is (0,0,0,0) IUP 39w2d IOL for Borderline TAMMY 5.0 Oligohydramnios Received Misoprostol X5 dose CRB That was D/C @ 2029 Currently on Pitocin induction 8 mu/min GBS status: Positive Ancef 2 gm IVPB Penicillin Q4H Epidural for pain management SROM Clear Fluid 08/22/2025 @ 0130 Current SVE /-1 Attempted to placed IUPC for Amnioinfusion Failed attempted, head well applied to CX Unable to place IUPC Last time patient ate 08/21 @ 2300 Order for D5LR @ 125 ML/ 500 ML Objective Vital Signs Vital Signs Date Time Temp Pulse Resp B/P (MAP) Pulse Ox O2 Delivery O2 Flow Rate FiO2 08/21/25 13:49 140/65 Monitoring Method Monitoring Method: External Heart Rate Heart Rate Baseline: 155 Heart Rate Variability: Moderate Presence of FHR Accelerations: Yes Presence of FHR Decelerations: No Changes in Trends of Patterns: No Are all 5 Components of the FH: Yes Contractions Contractions Frequency: Other Duration of Contraction: 60 Contractions Intensity: Moderate Contractions Resting Tone: Relaxed Membranes Membranes: Ruptured Amniotic Fluid Color: Clear Vaginal Exam Vag Exam Deferred: Yes Vaginal Exam Dilation: 6 Vaginal Exam Effacement: 90 Vaginal Exam Station: -1 Vaginal Exam Presentation: VTX Vaginal Exam Show: Moderate Medications Medications - Pitocin: Yes Medication - Epidural: Yes Lab Results Lab Results Vital Signs Date Time Temp Pulse Resp B/P (MAP) Pulse Ox O2 Delivery O2 Flow Rate FiO2 08/21/25 13:49 140/65 Current Medications Medications (Trade) Dose Ordered Sig/Lilian Start Time Stop Time Status Last Admin Dose Admin Lactated Ringer's 1,000 ml @ 125 mls/hr Q8H 08/20/25 11:00 08/21/25 20:18 125 MLS/HR Penicillin G Potassium 50 ml @ 100 mls/hr ONCE ONCE 08/20/25 11:00 08/20/25 11:29 DC 08/21/25 21:20 100 MLS/HR Penicillin G Potassium 5631382 units/Dextrose 50 ml @ 100 mls/hr Q4H 08/20/25 15:00 08/22/25 01:37 100 MLS/HR Witch Елена (Tucks) 1 pad PRN PRN 08/20/25 11:00 08/20/25 12:56 1 PAD Sodium Lauryl Sulfate (Phisoderm) 240 ml PRN PRN 08/20/25 11:00 08/20/25 12:56 240 ML Benzocaine (Dermoplast) 1 applic PRN PRN 08/20/25 11:00 08/20/25 12:56 1 APPLIC Butorphanol Tartrate (Stadol Injection) 1 mg Q4HPRN PRN 08/20/25 11:00 Butorphanol Tartrate (Stadol Injection) 2 mg Q4HPRN PRN 08/20/25 11:00 Misoprostol (Cytotec) 50 mcg Q4HPRN PRN 08/20/25 11:00 08/21/25 05:30 50 MCG Lidocaine HCl (Xylocaine) 40 ml ONCE PRN 08/20/25 11:00 Oxytocin 500 ml @ 999 mls/hr Q31M ONCE 08/20/25 11:00 08/20/25 11:30 DC Oxytocin 500 ml @ 125 mls/hr Q4H ONCE 08/20/25 11:30 08/20/25 15:29 DC Naloxone HCl (Narcan) 0.2 mg PRN ONCE 08/21/25 12:30 08/21/25 12:31 DC Ephedrine Sulfate (ePHEDrine SULFATE) 10 mg PRN ONCE 08/21/25 12:30 08/21/25 12:31 DC Fentanyl Citrate 100 mcg ONCE ONCE 08/21/25 12:30 08/21/25 12:31 DC 08/21/25 13:49 100 MCG Lactated Ringer's 1,000 ml @ 1,000 mls/hr Q1H ONCE 08/21/25 12:30 08/21/25 13:29 DC 08/21/25 14:20 1,000 MLS/HR Oxytocin 1,000 ml @ 6 ml/hr Q24H 08/21/25 14:00 08/21/25 16:04 3 ML/HR Cefazolin Sodium/ Dextrose 50 ml @ 50 mls/hr ONCE ONCE 08/21/25 19:45 08/21/25 20:44 DC 08/21/25 20:12 50 MLS/HR Cefazolin Sodium 50 ml @ 100 mls/hr Q8HR 08/22/25 07:00 Ondansetron HCl (Zofran) 4 mg Q4HPRN PRN 08/21/25 22:45 Laboratory Tests Test 08/20/25 11:00 Range/Units White Blood Count 8.1 4.4-10.8 10^3/uL Red Blood Count 4.78 4.0-5.20 10^6/uL Hemoglobin 14.5 12.2-16.2 g/dL Hematocrit 42.0 36.0-46.0 % Mean Corpuscular Volume 87.9 80.0-100.0 fL Mean Corpuscular Hemoglobin 30.4 28.0-32.0 pg Mean Corpuscular Hemoglobin Concent 34.6 32.0-36.0 g/dL Red Cell Distribution Width 13.0 11.8-14.3 % Platelet Count 173 140-450 10^3/uL Mean Platelet Volume 10.5 6.9-10.8 fL Neutrophils (%) (Auto) 65.4 37.0-80.0 % Lymphocytes (%) (Auto) 26.7 10.0-50.0 % Monocytes (%) (Auto) 6.6 0.0-12.0 % Eosinophils (%) (Auto) 1.0 0.0-7.0 % Basophils (%) (Auto) 0.3 0.0-2.0 % Neutrophils # (Auto) 5.3 1.6-8.6 10 ^3/uL Lymphocytes # (Auto) 2.2 0.4-5.4 10 ^3/uL Monocytes # (Auto) 0.5 0-1.3 10 ^3/uL Eosinophils # (Auto) 0.1 0-0.8 10 ^3/uL Basophils # (Auto) 0 0-0.2 10 ^3/uL Nucleated Red Blood Cells 0.1 % Prothrombin Time 9.5 9.3-11.8 sec Prothrombin Time INR 0.89 L 0.9-1.15 Activated Partial Thromboplast Time 28.2 24.5-34.5 SEC Urine Color Yellow Yellow Urine Clarity Turbid H Clear Urine pH 5.5 5.0-9.0 Urine Specific [place] 1.029 1.001-1.035 Urine Protein Trace H Negative Urine Ketones Negative Negative Urine Blood Negative Negative /uL Urine Nitrite Negative Negative Urine Bilirubin Negative Negative Urine Urobilinogen Normal Negative mg/dL Urine Leukocyte Esterase 1+ Negative /uL Urine RBC 4 0 - 4 /hpf Urine Microscopic WBC 22 H 0-5 /HPF Urine Squamous Epithelial Cells Few <5 /hpf Urine Bacteria Many H None Seen /hpf Urine Mucus Few None Seen Urine Glucose Normal Normal mg/dL Sodium Level 139 136-145 mmol/L Potassium Level 3.9 3.5-5.1 mmol/L Chloride Level 107 98-107 mmol/L Carbon Dioxide Level 21 20-31 mmol/L Anion Gap 11 5-15 Blood Urea Nitrogen 7 L 9-23 mg/dL Creatinine 0.67 0.550-1.02 mg/dL Glomerular Filtration Rate Calc 123 >90 mL/min BUN/Creatinine Ratio 10.4 10.0-20.0 Serum Glucose 85 74-106 mg/dL Calcium Level 9.6 8.7-10.4 mg/dL Total Bilirubin 0.5 0.2-1.0 mg/dL Aspartate Amino Transferase (AST) 37 13-40 U/L Alanine Aminotransferase (ALT) 60 H 7-40 U/L Alkaline Phosphatase 189 H 46-116 U/L Total Protein 7.2 5.7-8.2 g/dL Albumin 4.3 3.2-4.8 g/dL Urine Opiates Screen Neg NEGATIVE Urine Fentanyl Screen Neg NEGATIVE Urine Barbiturates Screen Neg NEGATIVE Urine Phencyclidine Screen Neg NEGATIVE Urine Amphetamines Screen Neg NEGATIVE Urine Benzodiazepines Screen Neg NEGATIVE Urine Cocaine Screen Neg NEGATIVE Urine Cannabinoids Screen Neg NEGATIVE Treponema pallidum Antibody Non-reactive Negative Hepatitis C Antibody Negative Negative Assessment Assessment ASSESSMENT: 08/22/2025 25y/o (0,0,0,0) 39w2d IOL [place] FHR baseline 165 bpm, mod variability , Accelerations present, no deceleration; Category 1 tracing with occasional Cat 2 Contractions q 2-3 mins x 60 secs SROM 08/22 @ [address] IUPC PLAN: Start D5LR 125 ML / H / 500 ML total Continue with Pitocin Induction Currently 8 mu/min Turn patient side to side / Position patient left [place] Minimize Vaginal Exams Cooling Measures IV ANBX for GBS + in Epidural for pain management Anticipate Vaginal Delivery Plan of care discussed with Patient Process, Risks, benefits, of available management options discussed Informed Consent obtained Consent for possible blood transfusion obtained. All questions answered. Plan Plan discussed with: Patient Visit Coding OBGYN Date of Service: Aug 22, 2025 Billing Provider: ANGELA ALFARO CNM CNC SUPERVISOR Common Visit Codes: [id number] INP/OBS CARE (LOW), [id number] INP/OBS CARE (MOD) [facility]:56
[2025-08-22] MEDS: D5W/LACTATED RINGERS 1,000 ML IV ONE (03:12)
[2025-08-22] MEDS: ceFAZolin 1GM/50ML 50 ML IV SCH ×2 (04:13→12:07)
[2025-08-22] MEDS: ROPIVACAINE HCL 100 ML ONE (04:20)
[2025-08-22] MEDS: ACETAMINOPHEN 500 MG TAB or CAP PO ONE ×2 (04:55→05:00)
--- NOTE | 2025-08-22 05:03 | DVHPN2 ---
CNM Labor Progress Note Date and Time Seen Date Seen: Aug 22, 2025 Time Seen: 04:45 Subjective Patient reports: Other Subjective Comment Subjective 08/22/2025 @ 3785 Human Resources Support Specialist Requested to bedside for evaluation of patient feeling pressure. SVE done C/C/+1 Tracing Category two FHR 170 with moderate variability and accels's noted Verbal order for Tylenol 1000 mg p.o. X1 dose now Begin to push with contractions to expedite delivery Patient is (0,0,0,0) IUP 39w2d IOL for Borderline TAMMY 5.0 Oligohydramnios Received Misoprostol X5 dose CRB That was D/C @ 2029 Currently on Pitocin induction 8 mu/min GBS status: Positive Ancef 2 gm IVPB Penicillin Q4H Epidural for pain management SROM Clear Fluid 08/22/2025 @ 0130 Monitoring Method Monitoring Method: External Heart Rate Heart Rate Baseline: 170 Heart Rate Variability: Moderate Presence of FHR Accelerations: No Presence of FHR Decelerations: No Changes in Trends of Patterns: No Are all 5 Components of the FH: No If NO Corrective Measures Comp: Begin to push for expidite Vaginal Delivery Contractions Duration of Contraction: 2 Contractions Intensity: Moderate Contractions Resting Tone: Relaxed Membranes Membranes: Ruptured Amniotic Fluid Color: Clear Vaginal Exam Vag Exam Deferred: No Vaginal Exam Dilation: 10 Vaginal Exam Effacement: 100 Vaginal Exam Station: +1 Vaginal Exam Presentation: VTX Vaginal Exam Show: Moderate Medications Medications - Pitocin: Yes Medication - Epidural: Yes Medication - Other Tylenol 1000 mg p.o. now Lab Results Lab Results Vital Signs Date Time Temp Pulse Resp B/P (MAP) Pulse Ox O2 Delivery O2 Flow Rate FiO2 08/21/25 13:49 140/65 Current Medications Medications (Trade) Dose Ordered Sig/Lilian Start Time Stop Time Status Last Admin Dose Admin Lactated Ringer's 1,000 ml @ 125 mls/hr Q8H 08/20/25 11:00 08/21/25 20:18 125 MLS/HR Penicillin G Potassium 50 ml @ 100 mls/hr ONCE ONCE 08/20/25 11:00 08/20/25 11:29 DC 08/21/25 21:20 100 MLS/HR Penicillin G Potassium 2241440 units/Dextrose 50 ml @ 100 mls/hr Q4H 08/20/25 15:00 08/22/25 01:37 100 MLS/HR Witch Елена (Tucks) 1 pad PRN PRN 08/20/25 11:00 08/20/25 12:56 1 PAD Sodium Lauryl Sulfate (Phisoderm) 240 ml PRN PRN 08/20/25 11:00 08/20/25 12:56 240 ML Benzocaine (Dermoplast) 1 applic PRN PRN 08/20/25 11:00 08/20/25 12:56 1 APPLIC Butorphanol Tartrate (Stadol Injection) 1 mg Q4HPRN PRN 08/20/25 11:00 Butorphanol Tartrate (Stadol Injection) 2 mg Q4HPRN PRN 08/20/25 11:00 Misoprostol (Cytotec) 50 mcg Q4HPRN PRN 08/20/25 11:00 08/21/25 05:30 50 MCG Lidocaine HCl (Xylocaine) 40 ml ONCE PRN 08/20/25 11:00 Oxytocin 500 ml @ 999 mls/hr Q31M ONCE 08/20/25 11:00 08/20/25 11:30 DC Oxytocin 500 ml @ 125 mls/hr Q4H ONCE 08/20/25 11:30 08/20/25 15:29 DC Naloxone HCl (Narcan) 0.2 mg PRN ONCE 08/21/25 12:30 08/21/25 12:31 DC Ephedrine Sulfate (ePHEDrine SULFATE) 10 mg PRN ONCE 08/21/25 12:30 08/21/25 12:31 DC Fentanyl Citrate 100 mcg ONCE ONCE 08/21/25 12:30 08/21/25 12:31 DC 08/21/25 13:49 100 MCG Lactated Ringer's 1,000 ml @ 1,000 mls/hr Q1H ONCE 08/21/25 12:30 08/21/25 13:29 DC 08/21/25 14:20 1,000 MLS/HR Oxytocin 1,000 ml @ 6 ml/hr Q24H 08/21/25 14:00 08/21/25 16:04 3 ML/HR Cefazolin Sodium/ Dextrose 50 ml @ 50 mls/hr ONCE ONCE 08/21/25 19:45 08/21/25 20:44 DC 08/21/25 20:12 50 MLS/HR Cefazolin Sodium 50 ml @ 100 mls/hr Q8HR 08/22/25 07:00 08/22/25 04:13 100 MLS/HR Ondansetron HCl (Zofran) 4 mg Q4HPRN PRN 08/21/25 22:45 Dextrose/Lactated Ringer's 1,000 ml @ 125 mls/hr Q8H ONCE 08/22/25 03:00 08/22/25 10:59 08/22/25 03:12 125 MLS/HR Laboratory Tests Test 08/20/25 11:00 Range/Units White Blood Count 8.1 4.4-10.8 10^3/uL Red Blood Count 4.78 4.0-5.20 10^6/uL Hemoglobin 14.5 12.2-16.2 g/dL Hematocrit 42.0 36.0-46.0 % Mean Corpuscular Volume 87.9 80.0-100.0 fL Mean Corpuscular Hemoglobin 30.4 28.0-32.0 pg Mean Corpuscular Hemoglobin Concent 34.6 32.0-36.0 g/dL Red Cell Distribution Width 13.0 11.8-14.3 % Platelet Count 173 140-450 10^3/uL Mean Platelet Volume 10.5 6.9-10.8 fL Neutrophils (%) (Auto) 65.4 37.0-80.0 % Lymphocytes (%) (Auto) 26.7 10.0-50.0 % Monocytes (%) (Auto) 6.6 0.0-12.0 % Eosinophils (%) (Auto) 1.0 0.0-7.0 % Basophils (%) (Auto) 0.3 0.0-2.0 % Neutrophils # (Auto) 5.3 1.6-8.6 10 ^3/uL Lymphocytes # (Auto) 2.2 0.4-5.4 10 ^3/uL Monocytes # (Auto) 0.5 0-1.3 10 ^3/uL Eosinophils # (Auto) 0.1 0-0.8 10 ^3/uL Basophils # (Auto) 0 0-0.2 10 ^3/uL Nucleated Red Blood Cells 0.1 % Prothrombin Time 9.5 9.3-11.8 sec Prothrombin Time INR 0.89 L 0.9-1.15 Activated Partial Thromboplast Time 28.2 24.5-34.5 SEC Urine Color Yellow Yellow Urine Clarity Turbid H Clear Urine pH 5.5 5.0-9.0 Urine Specific [place] 1.029 1.001-1.035 Urine Protein Trace H Negative Urine Ketones Negative Negative Urine Blood Negative Negative /uL Urine Nitrite Negative Negative Urine Bilirubin Negative Negative Urine Urobilinogen Normal Negative mg/dL Urine Leukocyte Esterase 1+ Negative /uL Urine RBC 4 0 - 4 /hpf Urine Microscopic WBC 22 H 0-5 /HPF Urine Squamous Epithelial Cells Few <5 /hpf Urine Bacteria Many H None Seen /hpf Urine Mucus Few None Seen Urine Glucose Normal Normal mg/dL Sodium Level 139 136-145 mmol/L Potassium Level 3.9 3.5-5.1 mmol/L Chloride Level 107 98-107 mmol/L Carbon Dioxide Level 21 20-31 mmol/L Anion Gap 11 5-15 Blood Urea Nitrogen 7 L 9-23 mg/dL Creatinine 0.67 0.550-1.02 mg/dL Glomerular Filtration Rate Calc 123 >90 mL/min BUN/Creatinine Ratio 10.4 10.0-20.0 Serum Glucose 85 74-106 mg/dL Calcium Level 9.6 8.7-10.4 mg/dL Total Bilirubin 0.5 0.2-1.0 mg/dL Aspartate Amino Transferase (AST) 37 13-40 U/L Alanine Aminotransferase (ALT) 60 H 7-40 U/L Alkaline Phosphatase 189 H 46-116 U/L Total Protein 7.2 5.7-8.2 g/dL Albumin 4.3 3.2-4.8 g/dL Urine Opiates Screen Neg NEGATIVE Urine Fentanyl Screen Neg NEGATIVE Urine Barbiturates Screen Neg NEGATIVE Urine Phencyclidine Screen Neg NEGATIVE Urine Amphetamines Screen Neg NEGATIVE Urine Benzodiazepines Screen Neg NEGATIVE Urine Cocaine Screen Neg NEGATIVE Urine Cannabinoids Screen Neg NEGATIVE Treponema pallidum Antibody Non-reactive Negative Hepatitis C Antibody Negative Negative Assessment Assessment ASSESSMENT: 08/22/2025 @ 0445 25y/o (0,0,0,0) 39w2d IOL [place] FHR baseline 170 bpm, mod variability , Accelerations absent, no deceleration; Category 2 tracing Contractions q 2-3 mins x 60 secs SROM 08/22 @ 0130 PLAN: SVE C/C/+2 Start to push with patient Expedite Delivery due to Cat 2 Tracing Tylenol 1000 mg p.o. X1 dose now Continue with Pitocin Induction Currently 8 mu/min Cooling Measures IV ANBX for GBS + in Epidural for pain management Anticipate Vaginal Delivery Time of Delivery Cord Gasses Send Placenta To Pathology Plan of care discussed with Patient Process, Risks, benefits, of available management options discussed Informed Consent obtained Consent for possible blood transfusion obtained. All questions answered. Plan Plan discussed with: Patient Visit Coding OBGYN Date of Service: Aug 22, 2025 Billing Provider: ANGELA ALFARO CNM EXHIBIT CARPENTER Common Visit Codes: [id number] INP/OBS CARE (MOD) ANGELA ALFAROORct 2024 05:03
[2025-08-22] MEDS: LACT. RINGERS/OXYTOCIN 20UNITS 500 ML IV ONE ×2 (06:28→06:29)
--- NOTE | 2025-08-22 06:28 | LDN2 ---
Labor and Delivery Note Date 08/22/25 Age 25 1 Para 1 Diagnosis DELIVERY NOTE Normal Spontaneous Vaginal Delivery At 08/22/2025 0518 this 25yo now delivered a viable Female infant by w/ APGARS 8/9. DANIAL. Nuchal cord noted and reduced at time of delivery. placed skin to skin on pts chest. Tranexamic Acid IVPD Infusing at time of Delivery Cord clamped and cut after pulsation ceased. Cord blood sent. Intact 3-vessel cord and intact placenta ([place]), delivered spontaneously @ 0526 Placenta sent to Pathology Pitocin IV bolus started. Placenta sent to pathology. Patient had epidural and pain was well managed Cervix inspected and intact. Second degree perineal laceration present which was repaired with 3-0 vicryl suture in the usual fashion. Rectal mucosa and sphincter intact. Fundus at U, firm, midline, and light lochia. QBL 750 Count correct x2. Patient to care and baby to couplet care, both stable. Vaginal Delivery: VTX Vacuum Assisted: No Placenta: Spontaneous Sex: Female Apgars 1 min 8, 5 min 9 Nuchal Cord Transected: Yes Amniotic Fluid: Clear Anesthesia Epidural Episiotomy: No Extension: No EBL 750 Labs Blood Bank 08/20/25 11:00: Blood Type A NEGATIVE Complications Category Two Tracing Conditions Stable Visit Coding OBGYN Date of Service: Aug 22, 2025 Billing Provider: ANGELA ALFARO CNM CENTRAL OFFICE OPERATOR Common Visit Codes: [id number] INP/OBS CARE (MOD) ANGELA ALFARO CNNVct 2024 06:28
[2025-08-22] MEDS: LIDOCAINE 2%HCL (LOCAL ANESTH.) INJ 20ML MDV IJ PRN (06:58)
[2025-08-22] MEDS ORDERED: IBUPROFEN 600 MG TAB PO PRN (07:15)
[2025-08-22] MEDS ORDERED: ONDANSETRON HCL 4 MG/2 ML VIAL IV PRN (07:15)
[2025-08-22] MEDS ORDERED: ACETAMINOPHEN 325 MG TAB PO PRN (07:15)
[2025-08-22] MEDS ORDERED: LACT. RINGERS/OXYTOCIN 20UNITS 500 ML IV ONE (07:45)
[2025-08-22] MEDS: METHYLERGONOVINE MALEATE 0.2 MG/ML AMP IM ONE ×2 (08:40→21:28)
[2025-08-22] MEDS ORDERED: CARBOPROST TROMETHAMINE 250 MCG/1ML VIAL IM PRN (08:45)
[2025-08-22 10:30] VITALS: BP 127/69; PULSE 101; RESP 20; TEMP 98.8; O2SAT 97
[2025-08-22] MEDS ORDERED: TRANEXAMIC ACID 1,000 mg/10ml INJ VIAL IV ONE (12:13)
[2025-08-22 15:00] VITALS: BP 122/58; PULSE 91; RESP 16; TEMP 98.1; O2SAT 97
[2025-08-22 19:00] VITALS: BP 119/68; PULSE 103; RESP 18; TEMP 98.8
[2025-08-22] MEDS: DOCUSATE SOD 100 MG CAP PO SCH (21:57)
[2025-08-22] MEDS: DIPHENOXYLATE W/ATROPINE 2.5 MG TAB PO SCH (22:00)
[2025-08-22 23:00] VITALS: BP 125/62; PULSE 94; RESP 18; TEMP 97.8
[2025-08-22] MEDS: RHO (D) IMMUNE GLOBULIN 300 MCG INJ IM ONE (23:03)
[2025-08-23 03:05] VITALS: BP 113/60; PULSE 85; RESP 17; TEMP 97.7; O2SAT 96
--- NOTE | 2025-08-23 03:11 | DVHPN2 ---
Progress Note Date Seen: Aug 23, 2025 Subjective S: Lochia minimal Tolerating regular diet well. Ambulating and voiding well w/o feeling lightheaded or dizzy. Passing flatus but no BM yet. Breast feeding. Contraceptive plan: Desires and requests to be discharged home today Lochia minimal Tolerating regular diet well. Ambulating and voiding well w/o feeling lightheaded or dizzy. Passing flatus but no BM yet. Breast feeding. Contraceptive plan: Desires and requests to be discharged home today vital signs Vital Sign Date Time Temp Pulse Resp B/P (MAP) Pulse Ox O2 Delivery O2 Flow Rate FiO2 08/22/25 23:00 97.8 94 18 125/62 (83) 97.8 08/22/25 19:00 Room Air 08/22/25 15:00 97 Total Intake and Output 08/22/25 08/22/25 08/23/25 15:00 23:00 07:00 Intake Total 2 ml Output Total 1450 ml 400 ml 500 ml Balance -1450 ml -398 ml -500 ml medications Current Medications Medications Dose Ordered Sig/Lilian Route Start Time Stop Time Status Last Admin Dose Admin Bakari Christiansen 1 pad PRN PRN TOP 08/20/25 11:00 08/20/25 12:56 1 PAD Sodium Lauryl Sulfate 240 ml PRN PRN TOP 08/20/25 11:00 08/20/25 12:56 240 ML Benzocaine 1 applic PRN PRN TOP 08/20/25 11:00 08/20/25 12:56 1 APPLIC Butorphanol Tartrate 1 mg Q4HPRN PRN IV 08/20/25 11:00 Cancel Butorphanol Tartrate 2 mg Q4HPRN PRN IV 08/20/25 11:00 Cancel Lidocaine HCl 40 ml ONCE PRN IJ 08/20/25 11:00 08/22/25 06:58 40 ML Ibuprofen 600 mg Q6HP PRN PO 08/22/25 07:15 Acetaminophen 650 mg Q4HP PRN PO 08/22/25 07:15 Ondansetron HCl 4 mg Q4HP PRN IV 08/22/25 07:15 Docusate Sodium 200 mg HS PO 08/22/25 22:00 08/22/25 21:57 200 MG Diphenoxylate HCl/ Atropine 5 mg Q12HR PO 08/22/25 10:00 Cefazolin Sodium 50 ml @ 100 mls/hr Q8H IV 08/22/25 12:00 08/23/25 04:29 08/22/25 20:13 100 MLS/HR laboratory and microbiology Laboratory Tests 08/20/25 11:00 Test 08/20/25 11:00 Range/Units Serum Glucose 85 74-106 mg/dL Objective O: A&O x3 NAD. Afebrile, VSS Chest: heart and lung sounds normal. Breasts: Nipples intact w/o cracks or soreness Abdomen: normal BS, soft, non-tender, no rebound or guarding, fundus firm @ U- 1, lochia minimal Perineum:- no edema, or erythema, laceration site with sutures intact, edges in good approximation. Extremities: no edema or tenderness Lochia - minimal Assessment/Plan 25 yo now ppd#1 s/p doing well. Blood Type: A Rh: Negative Breast feeding and Formula feeding Rubella Immune Pain control with oral medications Bowel regimen: Increase fluid intake and fiber in diet, Laxative PRN PP BCM Plan: Undecided Discharge plan: May discharge home later today if condition remains stable Plan discussed with: Patient, Spouse Visit Coding OBGYN Date of Service: Aug 23, 2025 Billing Provider: MANSI GIBSON CNM [employer] Common Visit Codes: [id number] INP/OBS CARE (HIGH) [employer] Procedure Codes: 04894-16- NON-STRESS TEST MANSI GIBSON CNM Aug 23, 2025 03:11
--- NOTE | 2025-08-23 03:14 | DVHDS2 ---
Discharge Summary Date of Admission Aug 20, 2025 at 10:54 Date of Discharge: Aug 23, 2025 Admitting Diagnosis IUP at 39w 1d Oligohydramnios GBS Carrier IOL for above Labs/Diagnostic Data: Laboratory Results Test 08/20/25 11:00 White Blood Count 8.1 10^3/uL (4.4-10.8) Red Blood Count 4.78 10^6/uL (4.0-5.20) Hemoglobin 14.5 g/dL (12.2-16.2) Hematocrit 42.0 % (36.0-46.0) Mean Corpuscular Volume 87.9 fL (80.0-100.0) Mean Corpuscular Hemoglobin 30.4 pg (28.0-32.0) Mean Corpuscular Hemoglobin Concent 34.6 g/dL (32.0-36.0) Red Cell Distribution Width 13.0 % (11.8-14.3) Platelet Count 173 10^3/uL (140-450) Mean Platelet Volume 10.5 fL (6.9-10.8) Neutrophils (%) (Auto) 65.4 % (37.0-80.0) Lymphocytes (%) (Auto) 26.7 % (10.0-50.0) Monocytes (%) (Auto) 6.6 % (0.0-12.0) Eosinophils (%) (Auto) 1.0 % (0.0-7.0) Basophils (%) (Auto) 0.3 % (0.0-2.0) Neutrophils # (Auto) 5.3 10 ^3/uL (1.6-8.6) Lymphocytes # (Auto) 2.2 10 ^3/uL (0.4-5.4) Monocytes # (Auto) 0.5 10 ^3/uL (0-1.3) Eosinophils # (Auto) 0.1 10 ^3/uL (0-0.8) Basophils # (Auto) 0 10 ^3/uL (0-0.2) Nucleated Red Blood Cells 0.1 % Prothrombin Time 9.5 sec (9.3-11.8) Prothrombin Time INR 0.89 (0.9-1.15) Activated Partial Thromboplast Time 28.2 SEC (24.5-34.5) Urine Color Yellow (Yellow) Urine Clarity Turbid (Clear) Urine pH 5.5 (5.0-9.0) Urine Specific Hines 1.029 (1.001-1.035) Urine Protein Trace (Negative) Urine Ketones Negative (Negative) Urine Blood Negative /uL (Negative) Urine Nitrite Negative (Negative) Urine Bilirubin Negative (Negative) Urine Urobilinogen Normal mg/dL (Negative) Urine Leukocyte Esterase 1+ /uL (Negative) Urine RBC 4 /hpf (0 - 4) Urine Microscopic WBC 22 /HPF (0-5) Urine Squamous Epithelial Cells Few /hpf (<5) Urine Bacteria Many /hpf (None Seen) Urine Mucus Few (None Seen) Urine Glucose Normal mg/dL (Normal) Sodium Level 139 mmol/L (136-145) Potassium Level 3.9 mmol/L (3.5-5.1) Chloride Level 107 mmol/L (98-107) Carbon Dioxide Level 21 mmol/L (20-31) Anion Gap 11 (5-15) Blood Urea Nitrogen 7 mg/dL (9-23) Creatinine 0.67 mg/dL (0.550-1.02) Glomerular Filtration Rate Calc 123 mL/min (>90) BUN/Creatinine Ratio 10.4 (10.0-20.0) Serum Glucose 85 mg/dL (74-106) Calcium Level 9.6 mg/dL (8.7-10.4) Total Bilirubin 0.5 mg/dL (0.2-1.0) Aspartate Amino Transferase (AST) 37 U/L (13-40) Alanine Aminotransferase (ALT) 60 U/L (7-40) Alkaline Phosphatase 189 U/L (46-116) Total Protein 7.2 g/dL (5.7-8.2) Albumin 4.3 g/dL (3.2-4.8) Urine Opiates Screen Neg (NEGATIVE) Urine Fentanyl Screen Neg (NEGATIVE) Urine Barbiturates Screen Neg (NEGATIVE) Urine Phencyclidine Screen Neg (NEGATIVE) Urine Amphetamines Screen Neg (NEGATIVE) Urine Benzodiazepines Screen Neg (NEGATIVE) Urine Cocaine Screen Neg (NEGATIVE) Urine Cannabinoids Screen Neg (NEGATIVE) Treponema pallidum Antibody Non-reactive (Negative) Hepatitis C Antibody Negative (Negative) Other Laboratory Tests 08/20/25 11:00 Brief Hx & Hospital Course: Admitted on 08/20/25 at 39w 1d EGA IOL d/t oligohydramnios. Induction process started with cervical ripening medication and patient then had an uneventful labor, got labor epidural for pain relief. She progressed to 2nd stage of labor and had a over a second degree perineal laceration. ( See Delivery Note for details). Had antibiotics for GBS prophylaxix Normal course; meeting milestones w/o any problem or complications. Operations or Procedures <> IOL <> Condition at Discharge: Good Final Diagnosis/Problems List SAME Term - delivered Discharge Disposition: Home Discharge Instruct/Medications Diet: Regular Diet comment: Routine regular diet rich in fiber, protein, iron and vitamin C with adequate fluid intake. Activity: See Comment Activity comment: Advance as tolerated. Balance activities with rest periods No heavy lifting, pushing or straining. Pelvic rest x 6weeks Follow Up/Referral: Follow up with OB Provider in 1 week Medications: Ibuprofen 600mg every 6 hours as needed for pain. Continue Vitamin Discharge Statement: self care instructions given. emergency signs and symptoms including but not limited to pre-eclampsia precautions and signs of infection, PPH & of PPD reviewed with patient. "Patient was advised to return to the ER or call 911 if any headaches, dizziness, shortness of breath, chest pain, abdominal pain, bleeding, fevers, or worsening of medical condition. Patient was counseled about treatment plan, medications, possible side effects, patientverbalized understanding. All questions were answered to the best of my ability. This discharge took greater then 30 minutes in planning, reviewing documentation, counseling the patient, and discussing with other team members." ASSESSMENT ASSESSMENT Hospital Course Admitted on 08/20/25 at 39w 1d EGA for IOL d/t oligohydramnios. Induction process started with cervical ripening medication and patient then had an uneventful labor, got labor epidural for pain relief. She progressed to 2nd stage of labor and had a over a second degree perineal laceration. ( See Delivery Note for details) Normal course; meeting milestones w/o any problem or complications. Assessment TERM Delivered Visit Coding OBGYN Date of Service: Aug 23, 2025 Billing Provider: MANSI GIBSON CNM [employer] ATTENDANT Common Visit Codes: [id number] INP/OBS CARE(HIGH), [id number]-LWJ/OBS DISCH DAY >30MIN MANSI GIBSON CNM Aug 23, 2025 03:14
[2025-08-23 07:00] VITALS: BP 108/59; PULSE 95; RESP 16; TEMP 98; O2SAT 96
[2025-08-23 15:07] VITALS: BP 110/62; PULSE 90; RESP 16; TEMP 97.5; O2SAT 97
== END 2025-08-23 17:56 | disposition home or self-care (01) | DRG 560 ==
LOC: LDRP 10:00 → UNDOADMIN 10:00 → LDRP 10:54
PROVIDERS: ADMIT Obstetrics & Gynecology; ATTEND Obstetrics & Gynecology
PROC: 3E033VJ Introduction of Other Hormone into Peripheral Vein, Percutaneous Approach (ICD-10-PCS; 2025-08-20)
PROC: 3E0DXGC Introduction of Other Therapeutic Substance into Mouth and Pharynx, External Approach (ICD-10-PCS; 2025-08-20)
PROC: 00HU33Z Insertion of Infusion Device into Spinal Canal, Percutaneous Approach (ICD-10-PCS; 2025-08-21)
PROC: 3E0R3BZ Introduction of Anesthetic Agent into Spinal Canal, Percutaneous Approach (ICD-10-PCS; 2025-08-21)
PROC: 10E0XZZ Delivery of Products of Conception, External Approach (ICD-10-PCS; principal; 2025-08-22)
PROC: 0KQM0ZZ Repair Perineum Muscle, Open Approach (ICD-10-PCS; 2025-08-22)
PROC: 30233S1 Transfusion of Nonautologous Globulin into Peripheral Vein, Percutaneous Approach (ICD-10-PCS; 2025-08-22)
DX: O41.03X0 Oligohydramnios, third trimester, not applicable or unspecified (principal); Z37.0 Single live birth; O26.893 Other specified pregnancy related conditions, third trimester; O70.1 Second degree perineal laceration during delivery; O99.824 Streptococcus B carrier state complicating childbirth; Z3A.39 39 weeks gestation of pregnancy; Z67.11 Type A blood, Rh negative; Z23 Encounter for immunization
CPT/HCPCS: 36415; 59025; 59200; 59409; 62282; 80053; 80307; 81001; 85025; 85610; 85730; 86780; 86803; 86850; 86870; 86900; 86901; 90384; 94760; 94762; 96360; 96361; 96365; 96366; 96372; A4344; G0378; J2003; J2540; J2590; J7060